=== PATIENT | female | born 1945 | race Caucasian/White ===

== ENCOUNTER 2018-04-27 12:31 | Emergency (ER) | payer MEDICARE, OTHER ==
[~2018-04-27] VITALS: Ht 147.3 cm; Wt 55.9 kg
[2018-04-27 12:38] VITALS: BP 211/75
== END 2018-04-27 14:29 | disposition home or self-care (01) ==
LOC: ED 14:17
DX: R94.31 Abnormal electrocardiogram [ECG] [EKG] (principal)
CPT/HCPCS: 36415; 84484; 93005; 99285

== ENCOUNTER 2019-09-08 03:12 | Emergency (ER) | payer MEDICARE, OTHER ==
[~2019-09-08] VITALS: Ht 149.9 cm; Wt 59.6 kg
--- NOTE | 2019-09-08 03:37 | NUR ---
PT PRESENTS WITH RASH TO BACK AND BILAT LEGS. ALSO C/O ITCHING TO HEAD. STATES WOKE THIS AM WITH UPPER LIP SWOLLEN. DENIES RESP SYMPTOMS OR THROAT SWELLING. NO S/S OF ACUTE RESP DISTRESS. VSS. CALL LIGHT IN REACH.
[2019-09-08] MEDS ORDERED: DIPHENHYDRAMINE 50 MG/ML, 1ML ONE (03:41)
[2019-09-08] MEDS ORDERED: FAMOTIDINE 20 MG/2 ML ONE (03:41)
[2019-09-08] MEDS ORDERED: methylPREDNISolone SOD SUCC 40 MG/ML ONE (03:41)
[2019-09-08] MEDS ORDERED: DIPHENHYDRAMINE 50 MG/ML, 1ML IVPush ONE (04:00)
[2019-09-08] MEDS ORDERED: FAMOTIDINE 20 MG/2 ML IVPush ONE (04:00)
[2019-09-08] MEDS ORDERED: methylPREDNISolone SOD SUCC 125 MG/2 ML IVPush ONE (04:00)
--- NOTE | 2019-09-08 04:10 | NUR ---
IV ACCESS OBTAINED AND PT MEDICATED PER SEP. NO ACUTE CHANGES NOTED AT THIS TIME. PT ON PULSE OX AND BP MONITORING. CALL LIGHT IN REACH. PT AWARE TO NOTIFY RN OF ANY CHANGES OR INCREASED SWELLING TO LIPS.
--- NOTE | 2019-09-08 04:35 | NUR ---
Pt states itching resolved after meds. Hives still noted to back and under L arm. Upper lip remains swollen. No resp involvment noted. ERP to recheck pt. Call light in reach. No needs expressed at this time.
--- NOTE | 2019-09-08 05:00 | NUR ---
REPORT TO RINKU GAMA. PT TO BE D/C HOME WHEN ABLE. CALL LIGHT IN REACH.
--- NOTE | 2019-09-08 05:01 | NUR ---
REPORT RECEIVED FROM LANETTE RECINOS. PLAN OF CARE DISCUSSED
[2019-09-08 05:02] VITALS: BP 133/48
--- NOTE | 2019-09-08 06:16 | NUR ---
Patient medicated per emar prior to discharge. Patient/Caregiver given discharge instructions and they have confirmed that they understand the instructions. Patient ambulatory with steady gait.
== END 2019-09-08 06:18 | disposition home or self-care (01) ==
LOC: ED 06:00
DX: L50.0 Allergic urticaria (principal); I10 Essential (primary) hypertension; Z90.89 Acquired absence of other organs; Z90.710 Acquired absence of both cervix and uterus
CPT/HCPCS: 96374; 96375; 99284; J1200; J2930; J3490; Q0177